=== PATIENT | female | born 1975 | race Caucasian/White ===

== ENCOUNTER 2021-03-08 06:34 | Inpatient (IN) ==
[2021-03-08] MEDS ORDERED: OXYTOCIN 30 UNITS/500 ML BAG IV PRN (06:57)
--- NOTE | 2021-03-08 07:00 | History & Physical Report ---
Date of Service March 08, 2021 Assessment & Plan (1) Supervision of elderly multigravida: (2) Grand multipara in labor in third trimester: Plan: I have recommended that the patient be admitted as she is likely in early labor. Has been unmedicated for her other babies but thinks she wants an epidural with this baby. I advised that we get that saba and then once comfortable , arom. she asks about waiting and given this is her 8th baby , with waiting longer, may miss window of opportunity. Fetus is reassuring category one. she is agreeable to admission and leaning toward epidural. Anticipate . History of Present Illness Chief Complaint: contractions Primary Care Provider: NO PCP Patient is a 45yowf with iup at 41 2/7 weeks who presents noting contractions, really feeling like gas pain. Started yesterday with some brownish d/c. got closer overnight and presents now for check. Baby very active. and Delivery Plans Late care - 32 weeks Grand multiparity AMA>40@del--noncomplicant *Anatomy Scan @ 20wks * [place] 22-24wks [place] [facility] [place] *Growth scan @32wks *Weekly NST's @36 wks *Twice weekly NST @38wks *Weekly ARABELLA's @38wks *Deliver by 41 wks Hx GDM--noncompliant *Begin monthly AC Us's @24wks Hx delayed pph Rh neg -needs rhogam, unable to do at nob Rhogam given 01/04/21 SB OB Labs: Blood Type O Negative 01/04/21 Antibody Screen NEGATIVE 01/04/21 Hemoglobin 11.1 g/dL (12.0-16.0) L 01/04/21 Hematocrit 32.5 % (37-47) L 01/04/21 Mean Corpuscular Volume 88.3 fL (80-100) 01/04/21 Platelet Count 209 K/uL (130-400) 01/04/21 Rubella IgG Antibody Immune (Immune) 01/04/21 Rapid Plasma Reagin Nonreactive (Nonreactive) 01/04/21 HIV (1&2) Ab and P24 Ag, 4th Gener Neg (Neg) 01/04/21 OB Optional Labs: Chlamydia trachomatis RNA NOT DETECTED (NOT DETECTED) 01/03/21 Neisseria gonorrhoeae RNA NOT DETECTED (NOT DETECTED) 01/03/21 Labs Reviewed: declines genetics - SLN Allergies Allergy/AdvReac Type Severity Reaction Status Date / Time No Known Allergies Allergy Mild Verified 03/06/21 15:55 Home Medications Medication Instructions Recorded Confirmed Type prenat.vits,marcie,[id number] 1 tab PO DAILY 01/01/21 03/06/21 History Patient History Medical History Vaginal delivery Surgical History S/P wisdom tooth extraction Social History Smoking Status: Former smoker Hx Alcohol Use: No Hx Substance Use: No Preferred Language: Taiwanese Web Weaver Required: No Beliefs That Will Affect Care: None marital status: marital status details: FOB: Shahzad (38) [phone] Current Living Situation: Family Current Living Situation Comment: lives with 7 children, 1 dog, 1 cat, cat goes outside. 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 Date GA wks Lbr Lgth wt Sex Type del Anes Place Del Prov ? Comment 03/01/03 41 8lb 3oz F Epidu ral Other [facility] No 08/22/04 39 7lb 11oz M Type unknown Other [facility] No 02/27/06 41 8lb 2oz M None Other [place] No 02/08/08 39 6lb 13oz M None [facility] provider, ?Jody No delayed pph, no blood transfusion 03/07/10 40 9lb 7oz M Local [facility] Dr. Thompson No A1GDM 02/12/12 41 7lb 14oz F None [facility] Dr. Multani No 06/04/14 41 8lb 13oz M None [facility] Dr. Chakraborty No [employer] History noncontributory Physical Exam Constitutional: WD/WN, vitals as above Neck: trachea midline, no thyromegaly Psychiatric: A+Ox3, euthymic affect Genitourinary: cx--100/-2 toco--q3min efm--155 wtih mod variabiltiy, accels to 180s, no decels Coding Level of Care Code None Diagnoses Supervision of elderly multigravida O09.529 Grand multipara in labor in third trimester O80
[2021-03-08] MEDS: LACTATED RINGER'S 1,000 ML IV PRN ×3 (07:15→16:24)
[2021-03-08 07:34] LABS: Hematocrit (blood only) 33.8 % (37-47); Mean Corpuscular Hemoglobin 29.3 pg (25-34); Mean Corpuscular Hgb Conc 32.5 g/dL (32-36); Mean Corpuscular Volume 89.9 fL (80-100); Mean Platelet Volume 10.7 fL (7.4-10.4); Platelet Count 221 K/uL (130-400); RDW Coefficient of Variation 13.7 % (11.5-14.5); RDW Standard Deviation 44.8 fL (36.4-46.3); Red Blood Count 3.76 M/uL (4.2-5.4); White Blood Count 12.73 K/uL (4.8-10.8)
[2021-03-08] MEDS ORDERED: ePHEDrine sulfate 50 MG/ML AMP ONE (11:01)
[2021-03-08] MEDS ORDERED: SODIUM CHLORIDE 0.9% INJ 10 ML VIAL ONE (11:01)
[2021-03-08] MEDS ORDERED: BUPIVACAINE 0.25% 30 ML VIAL ONE (11:01)
[2021-03-08] MEDS ORDERED: fentaNYL citrate 100 MCG/2 ML VIAL ONE (11:02)
[2021-03-08] MEDS ORDERED: fentaNYL 2MCG/ML ROPIVACAINE 1.25MG/ML 100 ML BAG EPI ONE (11:02)
[2021-03-08] MEDS ORDERED: diphenhydrAMINE 50 MG/ML VIAL IV PRN (11:31)
[2021-03-08] MEDS ORDERED: ONDANSETRON INJ 2 MG/ML 2 ML VIAL IV PRN (11:31)
[2021-03-08] MEDS ORDERED: fentaNYL 2MCG/ML ROPIVACAINE 1.25MG/ML 100 ML BAG EPI PRN (11:31)
[2021-03-08] MEDS ORDERED: NALOXONE HCL 0.4 MG/1 ML VIAL/CARP IV PRN (11:31)
[2021-03-08] MEDS ORDERED: NALOXONE HCL 1 MG in SODIUM CHLORIDE 0.9% 1000ML 1,000 ML IV PRN (11:31)
[2021-03-08] MEDS ORDERED: ePHEDrine sulfate 50 MG/ML AMP IV PRN (11:31)
[2021-03-08] MEDS ORDERED: PROMETHAZINE HCL 6.25 MG in SODIUM CHLORIDE 0.9% 50 ML IV PRN (11:31)
[2021-03-08] MEDS ORDERED: NALBUPHINE HCL INJ 10 MG/ML AMP IV PRN (11:31)
--- NOTE | 2021-03-08 11:31 | Anesthesiology Consultation ---
Date of Service March 08, 2021 Assessment & Plan Chart Review Chart Review: Acceptable Risk for Surgery and Patient NOT seen in Pre Admission Testing Consults Requested none ASA ASA2 Proposed Anesthesia Anesthesia Type: Labor Epidural Risk / Benefits Reviewed With: PT / POA / Parent / Guardian, Accepts Plan and Informed Consent Obtained History Height/Weight Height: 5 ft 4 in Weight: 92.646 kg Allergies Allergy/AdvReac Type Severity Reaction Status Date / Time No Known Allergies Allergy Mild Verified 03/06/21 15:55 Medications Home Medications Medication Instructions Recorded Confirmed Last Taken prenat.vits,marcie,tix-pwbx-qffzy 1 tab PO DAILY 01/01/21 03/06/21 Unknown Active Medications Generic Name Dose Route Start Last Admin Trade Name Freq PRN Reason Stop Dose Admin Lactated Ringer's 1,000 mls @ 125 mls/hr 03/08/21 06:57 03/08/21 08:07 Lr IV 03/10/21 06:56 125 mls/hr .Q8H PRN Administration L&D Protocol Protocol Past Medical History Medical History Vaginal delivery Exercise / Class Metabolic Activity II 4-5 Yardwork/Stairs/Walk up hill Past Surgical History Surgical History S/P wisdom tooth extraction Past Anesthesia History No Hx of Anesthesia Complications and No Family Hx of Anesthesia Complications History of PONV No Hx of PONV and No Hx of Motion Sickness Social History Smoking Status: Former smoker Do You Dip or Chew Tobacco: No Hx Alcohol Use: No Hx Substance Use: No substance use type: does not use Physical Exam Vital Signs Last Vital Signs Temp 36.8 C 03/08/21 08:00 Pulse 78 03/08/21 11:29 Resp 18 03/08/21 08:00 BP 100/58 L 03/08/21 11:29 Pulse Ox 100 03/08/21 11:29 ENMT Mouth: no dentition abnormality Thyromental Distance: > or= 3.5 Finger Breadths Mallampati Class: II Neck normal visual inspection Respiratory normal respiratory effort Auscultation: lungs clear to auscultation bilaterally Cardiovascular Rate/Rhythm: regular rate and regular rhythm Psychiatric Orientation: alert Testing Laboratory Results 03/08/21 07:13 03/08/21 03/08/21 10:50 08:06 POC Glucose 85 92
[2021-03-08 17:34] LABS: Albumin Level 2.7 gm/dl (3.4-5.0); BUN Creatinine Ratio 17.8 (10-20); Calcium 9.4 mg/dl (8.5-10.1); Creatinine Clr Calc Pharmacy 156.9 ml/min; Est GFR (African American) 136.5 ml/min; Est GFR (Non-African American) 117.8 ml/min; Potassium 3.6 mmol/L (3.5-5.1)
[2021-03-08 17:36] LABS: Albumin Globulin Ratio 0.7 (0.9-2); Bilirubin,Total 0.4 mg/dl (0.2-1); Globulin 4.1 gm/dl (2.5-4.0); Total Protein 6.8 gm/dl (6.4-8.2)
--- NOTE | 2021-03-08 22:31 | Delivery Summary ---
Vaginal Delivery Summary Date of Service March 08, 2021 Vaginal Delivery Summary Delivery Note Called by nursing staff that patients physician was in another delivery. Delivery Summary: Patient was when I arrived to the bedside. Upon maternal pushing the head was delivered atraumatically followed by the anterior shoulders, posterior shoulders then the remainder of the infants body. The infants mouth and nose were bulb suction below the level of the perineum. A female infant was delivered weight pending with APGARS of 8 at 1 minute and 9 at 5 minutes. The umbilical cord was clamped times two and cut. The was handed off to the awaiting nursing staff. Cord blood gases were obtained. The placenta delivered intact with three vessel cord. Placenta was not sent to pathology. Thirty units of Pitocin were added to the IV fluid and allowed to run freely. Uterine massage was performed until uterus was deemed firm. Upon inspection of the perineum, vagina and cervix were intact. Upon re-inspection the patient was hemostatic. Uterus again massaged and found to be firm. Needle and sponge counts were correct. Patient was stable and allowed to recover in L&D room. was stable and remained in room with mother in the Family Care Unit.
[2021-03-09] MEDS ORDERED: HYDROCORTISONE ACETATE 25 MG SUPP PR PRN (01:01)
[2021-03-09] MEDS ORDERED: SUPERCREAM 0.870% 15 GM JAR EXT PRN (01:01)
[2021-03-09] MEDS ORDERED: BENZOCAINE 20% AER SPR 82.5 GM CAN EXT PRN (01:01)
[2021-03-09] MEDS ORDERED: oxyCODONE/ACETAMINOPHEN 5mg/325mg TAB PO PRN (01:01)
[2021-03-09] MEDS ORDERED: ACETAMINOPHEN 325 MG TAB PO PRN (01:01)
[2021-03-09] MEDS ORDERED: DIPHTHERIA/TETANUS/PERTUSSIS 0.5 ML SYR/VIAL IM ONE (01:01)
[2021-03-09] MEDS ORDERED: CALCIUM CARBONATE 500 MG CHEWABLE TAB PO PRN (01:04)
[2021-03-09] MEDS: IBUPROFEN 600 MG TAB PO PRN ×4 (01:12→20:57)
--- NOTE | 2021-03-09 02:53 | Anesthesia Procedure Note ---
Date of Service March 09, 2021 Anesthesia Post Epidural Note Vital Signs Vital Signs: Temp Pulse Resp BP Pulse Ox 36.6 C 77 20 142/77 H 95 03/09/21 00:55 03/09/21 00:55 03/09/21 00:55 03/09/21 00:55 03/09/21 00:55 Pain Intensity Bilateral Lower Abdomen: Pain Intensity: 4 Notes Mental Status: alert / awake / arousable Nausea / Vomiting: adequately controlled Pain: adequately controlled Airway Patency, RR, SpO2: stable & adequate BP & HR: stable & adequate Hydration State: stable & adequate Neuraxial Anesthesia: was administered and sensory block is resolving Anesthetic Complications: no major complications apparent and Pt Satisfied with anesthetic care Epidural: Removed without complications and With tip intact
[2021-03-09 06:55] LABS: Hematocrit (blood only) 30.7 % (37-47); Hemoglobin 10.1 g/dL (12.0-16.0); Mean Corpuscular Hemoglobin 29.5 pg (25-34); Mean Corpuscular Hgb Conc 32.9 g/dL (32-36); Mean Corpuscular Volume 89.8 fL (80-100); Mean Platelet Volume 11.4 fL (7.4-10.4); Platelet Count 199 K/uL (130-400); RDW Coefficient of Variation 13.9 % (11.5-14.5); RDW Standard Deviation 45.2 fL (36.4-46.3); Red Blood Count 3.42 M/uL (4.2-5.4)
[2021-03-09] MEDS ORDERED: FERROUS SULFATE 325 MG TAB PO ONE (07:43)
--- NOTE | 2021-03-09 07:44 | Obstetrical Progress Note ---
Date of Service <Jax Gloria MD - Last Filed: 03/09/21 07:44> March 09, 2021 Assessment & Plan <Jax Gloria MD - Last Filed: 03/09/21 07:44> (1) Encounter for care and examination after delivery: PPD 1: stable, routine management * patient voiding and ambulating without difficulty * pain well controlled on analgesia * tolerating regular diet * breast and bottle feeding * reassess d/c readiness tomorrow <Susana Mahan MD - Last Filed: 03/09/21 08:12> (1) Encounter for care and examination after delivery: Subjective <Jxa Gloria MD - Last Filed: 03/09/21 07:44> Susana is a 45-year-old who is now PPD 1 following spontaneous vaginal delivery at 41 point weeks. Reports feeling well overall this morning. Minimal abdominal cramping pain well managed on analgesics. Voiding +. Tolerating meals well and able to ambulate without assistance. Some persistent lochia with some improvement this morning. Patient is breast and bottle feeding. Review of Systems Denies fever, chills, sweats Denies shortness of breath, difficulty breathing, chest pain, palpitations, chest pressure. Denies breast pain. Denies dysuria. Denies headache or changes in vision Physical Exam <Jax Gloria MD - Last Filed: 03/09/21 07:44> General: Alert, oriented. No acute distress. Cardiac: Regular rate and rhythm, no murmurs/rubs/gallops. Respiratory: Clear to auscultation bilaterally a/p, no wheezes/rales/rhonchi. No increased work of breathing. Symmetrical chest rise. No respiratory distress. Abdomen: Soft, nontender, nondistended. Bowel sounds present. Uterus: Uterine fundus firm, palpable 5 cm above the umbilicus. Lower Extremities: No lower extremity edema or swelling. No deep calf pain. Aamir's negative bilaterally.. Results & Data ([facility]) <Jax Gloria MD - Last Filed: 03/09/21 07:44> Vital Signs (Past 12 Hours) Vital Signs Temp Pulse Pulse Resp BP BP Pulse Ox 03/09/21 04:05 36.4 C L 82 18 112/68 97 01/08/22 00:55 36.6 C 77 20 142/77 H 95 03/09/21 00:28 95 H 145/79 H 03/09/21 00:12 91 H 135/67 03/08/21 23:57 91 H 138/69 03/08/21 23:42 85 134/66 03/08/21 23:27 90 140/68 03/08/21 23:12 86 146/74 H 03/08/21 22:57 75 158/83 H 03/08/21 22:42 187 H 142/90 H 03/08/21 22:27 89 138/68 03/08/21 22:24 85 100 03/08/21 22:19 73 100 03/08/21 22:14 96 H 97 03/08/21 22:11 109 H 93 03/08/21 22:09 93 H 80 L 03/08/21 22:05 91 H 91 03/08/21 22:04 96 H 176/84 H 98 03/08/21 21:59 95 H 99 03/08/21 21:54 82 100 03/08/21 21:49 70 138/67 100 03/08/21 21:44 85 100 03/08/21 21:39 79 100 03/08/21 21:34 81 99 03/08/21 21:33 92 H 124/68 03/08/21 21:29 80 100 03/08/21 21:24 86 99 03/08/21 21:19 74 100 03/08/21 21:18 93 H 139/76 03/08/21 21:14 90 100 03/08/21 21:09 99 H 99 03/08/21 21:04 93 H 100 03/08/21 21:03 36.8 C 93 H 16 141/79 H 03/08/21 20:59 79 100 03/08/21 20:54 87 100 03/08/21 20:49 78 152/83 H 100 03/08/21 20:44 94 H 100 03/08/21 20:39 106 H 100 03/08/21 20:34 95 H 100 03/08/21 20:33 82 147/72 H 03/08/21 20:29 88 100 03/08/21 20:24 91 H 100 03/08/21 20:19 92 H 145/80 H 99 03/08/21 20:14 75 100 03/08/21 20:09 98 H 100 03/08/21 20:04 83 100 03/08/21 20:03 88 127/71 03/08/21 19:59 80 100 03/08/21 19:54 86 100 03/08/21 19:49 93 H 99 03/08/21 19:48 86 120/66 03/08/21 19:44 89 99 <Susana Mahan MD - Last Filed: 03/09/21 08:12> Co-Signing Physician Notes Resident Physician Supervision Note: I interviewed and examined the patient. Discussed with Dr. Edwards and agree with findings and plan as documented in the note. Any exceptions or clarifications are listed here: [ ] Documented By: Susana Mahan MD, FACOG Resident Activity Tracking <Jax Gloria MD - Last Filed: 03/09/21 07:44> Resident Involvement: Resident Care Provided Care Provided: OB Delivery
[2021-03-09] MEDS: DOCUSATE SODIUM 100 MG CAP PO SCH ×2 (08:24→20:57)
[2021-03-09] MEDS: PRENATAL VITAMIN 1 TAB PO SCH (08:24)
--- NOTE | 2021-03-10 07:49 | Obstetrical Progress Note ---
Date of Service March 10, 2021 Assessment & Plan (1) Encounter for care and examination after delivery: 45 yo PP2 from , doing well -Meeting all pp milestones -O-/rubella immune/ -gHTN - will schedule 1 wk BP check, pet s/s reviewed -f/u 6 weeks for appt Subjective Ambulation: ambulating normally Voiding: no voiding problems Passing Gas:: Yes Diet Tolerance:: regular diet Lochia:: Small Feeding Type:: breast feeding (and formula) Pain well managed with medication Review of Systems Denies fevers, chills, n/v, RAMOS, CP, SOB Physical Exam Constitutional WD/WN, vitals as above no acute distress Respiratory normal respiratory effort, lungs clear to auscultation Cardiovascular RRR, no murmur, no edema Gastrointestinal (Abdomen) Percussion/Palpation: abdomen soft; abdomen nontender fundus firm at umbilicus and NT Musculoskeletal BLE symmetric, nonerythematous, nontender Results & Data ([facility]) Vital Signs (Past 12 Hours) Vital Signs Temp Pulse Resp BP 03/10/21 00:00 98.2 F 59 L 18 134/78 03/09/21 20:57 133/76
[2021-03-10 07:55] LABS: Hematocrit (blood only) 29.1 % (37-47); Hemoglobin 9.4 g/dL (12.0-16.0)
[2021-03-10] MEDS: IBUPROFEN 600 MG TAB PO PRN (08:21)
[2021-03-10] MEDS: PRENATAL VITAMIN 1 TAB PO SCH (08:22)
[2021-03-10] MEDS: DOCUSATE SODIUM 100 MG CAP PO SCH (08:22)
== END 2021-03-10 15:00 | disposition home or self-care (01) | DRG 807 ==
LOC: OPB 06:34 → 4S1 06:37 → 4S2 03-09 01:14